=== PATIENT | female | born 1935 | race Caucasian/White ===

== ENCOUNTER 2022-09-07 18:01 | Inpatient (IN) ==
[2022-09-07] MEDS ORDERED: NS 0.9% 1000 ml BAG 1,000 ML IV ONE (18:06)
[2022-09-07] MEDS ORDERED: Morphine 4 MG/ML VIAL (1 ml) IV ONE (19:46)
[2022-09-07 20:29] LABS: ABS Lymphocytes 0.8 10^3/ul (1.0-4.8); ABS Monocytes 0.6 10^3/ul (0-0.8); ABS Neutrophils 6.8 10^3/ul (1.5-7.7); Hematocrit 39 % (35-47); Hemoglobin 12.9 g/dL (12.0-16.0); Lymphocyte % 9.7 %; Mean Corpuscular HGB Conc 33 g/dL (31-36); Mean Corpuscular Hemoglobin 29 pg (27-31); Mean Corpuscular Volume 88 fL (80-97); Mean Platelet Volume 7.2 fL (7.4-10.4); Platelet Count 194 10^3/uL (150-450); Red Blood Count 4.43 10^6 /uL (3.70-4.87); Red Cell Distribution Width 18 % (10-15); White Blood Count 8.2 10^3/uL (3.5-10.8)
[2022-09-07 20:42] LABS: INR 1.16 (0.88-1.18)
[2022-09-07 20:55] LABS: Urine Appearance Turbid; Urine Bilirubin Negative (Negative); Urine Blood 1+ (Negative); Urine Color Amber; Urine Glucose Negative (Negative); Urine Ketones 2+ (Negative); Urine Nitrite Negative (Negative); Urine Protein 2+(100 mg/dL) (Negative); Urine Specific Gravity 1.018 (1.002-1.030); Urine Urobilinogen Negative (Negative)
[2022-09-07 21:01] LABS: Urine Bacteria 1+ (Absent); Urine Red Blood Cell 3+(>10/hpf) (Absent); Urine Squamous Epithelial Cell Present (Absent); Urine White Blood Cell 3+(>20/hpf) (Absent)
[2022-09-07] MEDS ORDERED: cefTRIAXone 1 gm/50 mL D5W 1 GM/50 ML BAG IV ONE (21:17)
[2022-09-07 21:22] LABS: Albumin 3.8 g/dL (3.2-5.2); Albumin/Globulin Ratio 1.9 (1-3); C Reactive Protein 23.21 mg/L (<8.01); Calcium 9.1 mg/dL (8.6-10.3); Creatinine, Serum 0.52 mg/dL (0.51-0.95); Magnesium 1.5 mg/dL (1.9-2.7); Phosphorus 3.6 mg/dL (2.5-5.0); Potassium 3.5 mmol/L (3.5-5.0); Total Bilirubin 0.5 mg/dL (0.2-1.0); Total Protein 5.8 g/dL (6.4-8.9); eGFR CKD-EPI 91.6 (>60)
[2022-09-07 22:07] LABS: High Sensitivity Troponin 1 Hr 16 pg/mL (<15)
[2022-09-08] MEDS ORDERED: Morphine 2 MG/ML SYRINGE IV PRN (00:13)
[2022-09-08 07:28] LABS: ABS Lymphocytes 1.2 10^3/ul (1.0-4.8); ABS Monocytes 0.7 10^3/ul (0-0.8); ABS Neutrophils 4.2 10^3/ul (1.5-7.7); Hematocrit 38 % (35-47); Hemoglobin 12.6 g/dL (12.0-16.0); Lymphocyte % 19.2 %; Mean Corpuscular HGB Conc 33 g/dL (31-36); Mean Corpuscular Hemoglobin 30 pg (27-31); Mean Corpuscular Volume 89 fL (80-97); Platelet Count 145 10^3/uL (150-450); Red Blood Count 4.26 10^6 /uL (3.70-4.87); Red Cell Distribution Width 18 % (10-15)
[2022-09-08 08:11] LABS: Albumin 3.3 g/dL (3.2-5.2); Albumin/Globulin Ratio 1.5 (1-3); Calcium 8.9 mg/dL (8.6-10.3); Creatinine, Serum 0.46 mg/dL (0.51-0.95); Globulin 2.2 g/dL (2-4); Potassium 3.7 mmol/L (3.5-5.0); Total Bilirubin 0.4 mg/dL (0.2-1.0); Total Protein 5.5 g/dL (6.4-8.9); eGFR CKD-EPI 94.3 (>60)
[2022-09-08 08:26] LABS: TSH Ultra Thyroid Stim Horm 0.35 mcIU/mL (0.34-5.60)
[2022-09-08] MEDS ORDERED: Iohexol 300 (CONTRAST) 10 ML SDV IV ONE (08:58)
[2022-09-08] MEDS: Enoxaparin 40 MG/0.4 ML SYR SUBCUT SCH (09:01)
[2022-09-08] MEDS: DULoxetine DR 30 mg CAP PO SCH (09:46)
[2022-09-08] MEDS: Calcitonin NASAL(NF) 200 UNITS/SPRAY NASAL.SPR INTRANASAL SCH (09:48)
[2022-09-08] MEDS ORDERED: Morphine ER 15 mg TAB ** extended release PO SCH (12:00)
[2022-09-08] MEDS: cefTRIAXone 1 gm/50 mL D5W 1 GM/50 ML BAG IV SCH (14:44)
[2022-09-09] MEDS: Enoxaparin 40 MG/0.4 ML SYR SUBCUT SCH (08:59)
[2022-09-09] MEDS: DULoxetine DR 30 mg CAP PO SCH (09:02)
[2022-09-09] MEDS: Calcitonin NASAL(NF) 200 UNITS/SPRAY NASAL.SPR INTRANASAL SCH (09:06)
[2022-09-09 10:28] VITALS: BP 127/72
[2022-09-09] MEDS: cefTRIAXone 1 gm/50 mL D5W 1 GM/50 ML BAG IV SCH (11:33)
[2022-09-11 15:34] LABS: Kappa Free Light Chain 1.27 mg/dL; Lambda Free Light Chain, S 1.11 mg/dL
== END 2022-09-09 13:30 | disposition home or self-care (01) | DRG 690 ==
LOC: ED 18:01 → EDHOLD 21:42 → MED 09-08 17:49
PROVIDERS: ADMIT Internal Medicine; ATTEND Internal Medicine

== ENCOUNTER 2022-09-25 11:33 | Inpatient (IN) ==
[2022-09-25] MEDS ORDERED: Ondansetron 4 mg VIAL 2 MG/ML 2 ml VIAL IV ONE (12:33)
[2022-09-25 13:54] LABS: ALT 41 U/L (7-52); Albumin 3.4 g/dL (3.2-5.2); Albumin/Globulin Ratio 1.4 (1-3); Alkaline Phosphatase 48 U/L (35-149); Blood Urea Nitrogen 25 mg/dL (6-24); CO2 Carbon Dioxide 26 mmol/L (22-32); Calcium 8.7 mg/dL (8.6-10.3); Chloride 105 mmol/L (101-111); Creatinine, Serum 0.52 mg/dL (0.51-0.95); Globulin 2.4 g/dL (2-4); Glucose 185 mg/dL (70-100); Magnesium 2.2 mg/dL (1.9-2.7); Sodium 138 mmol/L (135-145); Total Protein 5.8 g/dL (6.4-8.9); eGFR CKD-EPI 91.6 (>60)
[2022-09-25 14:17] LABS: Urine Appearance Clear; Urine Bilirubin Negative (Negative); Urine Blood Negative (Negative); Urine Color Yellow; Urine Glucose 2+(150 mg/dL) (Negative); Urine Ketones Negative (Negative); Urine Nitrite Negative (Negative); Urine Protein Negative (Negative); Urine Specific Gravity 1.023 (1.002-1.030); Urine Urobilinogen Negative (Negative)
[2022-09-25 14:18] LABS: ABS Lymphocytes 0.4 10^3/ul (1.0-4.8); ABS Monocytes 0.3 10^3/ul (0-0.8); ABS Neutrophils 9.7 10^3/ul (1.5-7.7); Eosinophil % 0.1 %; Hematocrit 36 % (35-47); Hemoglobin 11.9 g/dL (12.0-16.0); Lymphocyte % 3.8 %; Mean Corpuscular Hemoglobin 30 pg (27-31); Mean Corpuscular Hgb Conc 33 g/dL (31-36); Mean Corpuscular Volume 91 fL (80-97); Mean Platelet Volume 7.2 fL (7.4-10.4); Platelet Count 114 10^3/uL (150-450); Red Blood Count 3.95 10^6 /uL (3.70-4.87); Red Cell Distribution Width 20 % (10-15); White Blood Count 10.4 10^3/uL (3.5-10.8)
[2022-09-25] MEDS ORDERED: HYDROcodone/ACETAMIN 5/325 mg TAB PO PRN (14:21)
[2022-09-25 14:40] LABS: Anion Gap 7 mmol/L (2-11)
[2022-09-25 16:07] LABS: Phosphorus 2.8 mg/dL (2.5-5.0); Potassium Redraw 4.3 mmol/L (3.5-5.0)
[2022-09-25] MEDS ORDERED: Morphine ER 15 mg TAB ** extended release PO SCH (21:00)
[2022-09-25] MEDS: Morphine 2 MG/ML SYRINGE IV PRN ×2 (22:45→22:51)
[2022-09-26] MEDS ORDERED: Morphine ORAL CONCENTRATE 5 MG/0.25 ML ORAL.SYRIN SL PRN ×2 (00:04→00:06)
[2022-09-26] MEDS: DULoxetine DR 30 mg CAP PO SCH (08:53)
[2022-09-26] MEDS ORDERED: CALCITONIN INTRANASAL SCH (09:00)
[2022-09-26] MEDS ORDERED: B COMPLEX WITH VITAMIN C PO SCH (09:00)
[2022-09-26] MEDS: Lidocaine PATCH 5% PATCH TRANSDERM SCH (09:53)
[2022-09-26] MEDS: Morphine ORAL CONCENTRATE 5 MG/0.25 ML ORAL.SYRIN SL PRN ×2 (11:47→18:00)
[2022-09-27] MEDS: Morphine ORAL CONCENTRATE 5 MG/0.25 ML ORAL.SYRIN SL PRN ×3 (00:14→09:31)
[2022-09-27] MEDS ORDERED: Polyethylene Glycol 3350 17 GM PACKET PO PRN (07:50)
[2022-09-27] MEDS: DULoxetine DR 30 mg CAP PO SCH (09:31)
[2022-09-27] MEDS: Lidocaine PATCH 5% PATCH TRANSDERM SCH (09:31)
[2022-09-27 10:08] VITALS: BP 114/67
[2022-09-27] MEDS: Senna TAB 8.6 mg TAB PO PRN (21:52)
[2022-09-28] MEDS: Lidocaine PATCH 5% PATCH TRANSDERM SCH (09:12)
[2022-09-28] MEDS: DULoxetine DR 30 mg CAP PO SCH (09:12)
[2022-09-28] MEDS: Senna TAB 8.6 mg TAB PO PRN (20:26)
[2022-09-29] MEDS: Lidocaine PATCH 5% PATCH TRANSDERM SCH (09:23)
[2022-09-29] MEDS: DULoxetine DR 30 mg CAP PO SCH (09:23)
[2022-09-29] MEDS: Morphine ORAL CONCENTRATE 5 MG/0.25 ML ORAL.SYRIN SL PRN (09:23)
[2022-09-30] MEDS: Lidocaine PATCH 5% PATCH TRANSDERM SCH (07:58)
[2022-09-30] MEDS: DULoxetine DR 30 mg CAP PO SCH (07:58)
[2022-09-30] MEDS: Morphine ORAL CONCENTRATE 5 MG/0.25 ML ORAL.SYRIN SL PRN (18:00)
[2022-10-01] MEDS: DULoxetine DR 30 mg CAP PO SCH (11:45)
[2022-10-01] MEDS: Lidocaine PATCH 5% PATCH TRANSDERM SCH (11:45)
[2022-10-01] MEDS ORDERED: Morphine ORAL CONCENTRATE 5 MG/0.25 ML ORAL.SYRIN SL PRN (14:46)
[2022-10-01] MEDS: Acetaminop/Codeine 300mg/30mg TAB PO PRN (15:24)
[2022-10-02 03:10] LABS: Rapid COVID-19 Molecular Undetected (Undetected)
[2022-10-02] MEDS: Acetaminop/Codeine 300mg/30mg TAB PO PRN (09:06)
[2022-10-02] MEDS: DULoxetine DR 30 mg CAP PO SCH (09:06)
[2022-10-02] MEDS: Lidocaine PATCH 5% PATCH TRANSDERM SCH (09:06)
== END 2022-10-02 11:25 | DRG 206 ==
LOC: EDHOLD 11:33 → ED 11:33 → EDHOLD 20:06 → MED 20:11 → SUATTDRO 09-26 13:39
PROVIDERS: ADMIT Internal Medicine; ATTEND Internal Medicine